=== PATIENT | male | born 1985 | race Caucasian/White ===

== ENCOUNTER 2016-09-26 16:08 | Emergency (ER) | payer OTHER ==
[2016-09-26 17:07] LABS: BLOOD UREA NITROGEN 9 mg/dL (7-18); CALCIUM 9.3 mg/dL (8.7-10.7); CARBON DIOXIDE 27 mmol/L (21-32); CREATININE 0.6 mg/dL (0.6-1.3); GLUCOSE,RANDOM 318 mg/dL (70-99); POTASSIUM 4.8 mmol/L (3.5-5.1); SODIUM 138 mmol/L (136-145)
[2016-09-26 17:47] LABS: GRAN # 1.4 10_X3_UL (1.8-5.4); HEMATOCRIT 43.2 % (40-51); HEMOGLOBIN 14.4 g/dl (13.7-17.5); LYMPH # 1.2 10_X3_UL (1.3-3.6); MEAN CORPUSCULAR HEMOGLOBIN 31.3 pg (27.0-33.0); MEAN CORPUSCULAR HGB CONC 33.3 g/dl (32.0-36.0); MEAN CORPUSCULAR VOLUME 93.9 fl (79-92); MIXED # 0.2 10_X3_UL (0-12); PLATELET COUNT 154 x10_3/UL (163-337); RED CELL DISTRIBUTION WIDTH 13.4 % (11.6-14.4); WHITE BLOOD COUNT 2.8 x10_3/ml (4.2-9.1)
[2016-09-26 17:48] LABS: GRAN % 48.8 % (34.0-67.9); LYMPH % 42.3 % (21.8-53.1); MIXED % 8.9 % (1.7-9.3)
[2016-09-26 17:58] LABS: PROTHROMBIN TIME (PATIENT) 10.3 SECONDS (9.6-10.8)
== END 2016-09-26 18:23 | disposition short-term general hospital (02) ==
LOC: ER 16:08
PROVIDERS: General Practice
DX: H00.13 Chalazion right eye, unspecified eyelid (principal); E11.65 Type 2 diabetes mellitus with hyperglycemia; G62.9 Polyneuropathy, unspecified; M43.6 Torticollis; D72.819 Decreased white blood cell count, unspecified; Z79.899 Other long term (current) drug therapy; Z79.4 Long term (current) use of insulin
CPT/HCPCS: 36415; 70450; 72125; 72128; 80048; 80307; 82962; 85025; 85610; 93005; 99070; 99284-25